=== PATIENT | female | born 1940 | race Caucasian/White ===

== ENCOUNTER → 2016-06-19 | Outpatient (CLI) | payer OTHER, BC ==
[~2016-06-19] MED LIST: ALLEGRA ALLERGY60 MG PO; ALLEGRA180 MG PO; ASPIRIN EC325 M1 PO; CALCIUM LACTATE PO; CENTRUM SILVER1 EAC3 PO; CLONAZEPAM 1 MG1 M1 PO; COUMADIN 5 MG TA5 M1 PO; FLAGYL500 MG PO; FLONASE 0.05%50 MCG NASAL; GINGER500 MG PO; LEVAQUIN 500 M500 M2 PO; NORCO 5-325 TA1 EACH PO; OXYCODON-ACETA1 EAC1 PO; PERCOCET PO; QVAR HFA 440 MCG/UN1 INH; SINGULAIR 10 MG10 MG PO; VITAMIN D1000 UNI1 PO; VITAMIN E400 UNIT PO; ZYRTEC10 M2 PO
== END ==
LOC: MRI 02:02
DX: M48.06 Spinal stenosis, lumbar region (principal); M47.26 Other spondylosis with radiculopathy, lumbar region; M54.5 Low back pain

== ENCOUNTER 2017-10-02 15:55 | Emergency (ER) | payer OTHER, BC ==
[~2017-10-02] VITALS: Ht 154.9 cm; Wt 52.6 kg
[2017-10-02 16:15] LABS: URINE BILIRUBIN NEGATIVE (Negative); URINE BLOOD TRACE (Negative); URINE CLARITY CLEAR; URINE COLOR YELLOW; URINE GLUCOSE-RANDOM* NEGATIVE (Negative); URINE KETONES NEGATIVE (Negative); URINE LEUKOCYTES-REFLEX 1+ (Negative); URINE NITRITE-REFLEX NEGATIVE (Negative); URINE PROTEIN (DIPSTICK) NEGATIVE (Negative); URINE SPECIFIC GRAVITY <= 1.005 (1.005-1.035); URINE UROBILINOGEN 0.2 E.U./dl (0.2-1.0)
[2017-10-02 16:26] LABS: BACTERIA-REFLEX None Seen /HPF (None Seen); CASTS None Seen /LPF (None Seen); CRYSTALS None Seen /LPF (None Seen); SQUAMOUS 4-10 Moderate /LPF (0-3); URINE RBC 0-2 Rare /HPF (0-2); URINE WBC-REFLEX 0-5 Rare /HPF (0-5)
[2017-10-02] MEDS ORDERED: ZINC30 M1 PO (16:33)
[2017-10-02] MEDS ORDERED: VITAMINC500 PO (16:33)
[2017-10-02 16:38] LABS: BASOPHILS 1.5 % (0.0-2.0); EOSINOPHILS 8.6 % (0.0-3.0); HEMATOCRIT 38.7 % (37.0-47.0); HEMOGLOBIN 13.2 gm/dL (12.0-15.0); LYMPHOCYTES 22.3 % (24.0-44.0); MCH 31.1 pg (26.0-34.0); MCV 91.6 fL (80.0-100.0); PLATELET COUNT 177 thou/uL (150-400); POLYS 56.6 % (36.0-66.0); RBC 4.23 mil/uL (4.20-5.00); WBC 5.3 thou/uL (4.0-11.0)
[2017-10-02 16:50] LABS: CALCIUM 8.7 mg/dL (8.5-10.1); CREATININE 0.8 mg/dL (0.6-1.0); POTASSIUM 4.1 mmol/L (3.5-5.1)
[2017-10-02 16:57] LABS: ALBUMIN 3.6 g/dL (3.4-5.0); TOTAL BILIRUBIN 0.5 mg/dL (<0.1-1.0); TOTAL PROTEIN 6.7 g/dL (6.4-8.2)
== END 2017-10-02 18:00 | disposition home or self-care (01) ==
LOC: ER 15:55
PROVIDERS: Physician Assistant
DX: R10.9 Unspecified abdominal pain (principal); S81.811A Laceration without foreign body, right lower leg, initial encounter; Z71.1 Person with feared health complaint in whom no diagnosis is made; Z96.659 Presence of unspecified artificial knee joint; F17.210 Nicotine dependence, cigarettes, uncomplicated; Z88.1 Allergy status to other antibiotic agents; Z88.0 Allergy status to penicillin; Z88.8 Allergy status to other drugs, medicaments and biological substances; W01.0XXA Fall on same level from slipping, tripping and stumbling without subsequent striking against object, initial encounter; Y93.89 Activity, other specified; Y92.89 Other specified places as the place of occurrence of the external cause; Y99.8 Other external cause status

== ENCOUNTER 2018-07-09 17:42 | Inpatient (IN) | payer OTHER ==
[~2018-07-09] VITALS: Ht 160 cm; Wt 49.9 kg
[2018-07-09 17:42] VITALS: BP 156/82
[~2018-07-09 17:42] MED LIST changes: +VITAMINC500 PO; +ZINC30 M1 PO
[2018-07-09 18:16] LABS: BASOPHILS 0.3 % (0.0-2.0); EOSINOPHILS 0.1 % (0.0-3.0); HEMATOCRIT 35.4 % (37.0-47.0); HEMOGLOBIN 12.2 gm/dL (12.0-15.0); LYMPHOCYTES 4.3 % (24.0-44.0); MCH 30.8 pg (26.0-34.0); MCHC 34.3 g/dL (28.0-37.0); MCV 89.7 fL (80.0-100.0); MONOCYTES 7.8 % (1.0-8.0); PLATELET COUNT 135 thou/uL (150-400); POLYS 87.5 % (36.0-66.0); RBC 3.95 mil/uL (4.20-5.00); RDW 12.5 % (10.5-14.5); WBC 13.7 thou/uL (4.0-11.0)
[2018-07-09 18:26] LABS: CALCIUM 8.3 mg/dL (8.5-10.1); CREATININE 0.9 mg/dL (0.6-1.0); TOTAL BILIRUBIN 1.1 mg/dL (<0.1-1.0); TOTAL PROTEIN 6.5 g/dL (6.4-8.2)
[2018-07-09 18:31] LABS: POTASSIUM 2.4 mmol/L (3.5-5.1)
[2018-07-09 18:49] LABS: URINE BILIRUBIN NEGATIVE (Negative); URINE BLOOD 3+ (Negative); URINE CLARITY CLEAR; URINE COLOR YELLOW; URINE GLUCOSE-RANDOM* NEGATIVE (Negative); URINE KETONES 1+ (Negative); URINE LEUKOCYTES 3+ (Negative); URINE NITRITE POSITIVE (Negative); URINE PROTEIN (DIPSTICK) 2+ (Negative); URINE SPECIFIC GRAVITY 1.015 (1.005-1.035); URINE UROBILINOGEN 0.2 E.U./dl (0.2-1.0)
[2018-07-09 18:59] LABS: BACTERIA >30 Many /HPF (None Seen); CASTS None Seen /LPF (None Seen); CRYSTALS None Seen /LPF (None Seen); SQUAMOUS None Seen /LPF (0-3); URINE WBC >25 Many /HPF (0-5); WBC CLUMPS Many (None Seen)
[2018-07-09 20:26] VITALS: BP 122/60
[2018-07-09 20:35] VITALS: BP 119/64
[2018-07-09 20:56] VITALS: BP 134/63
--- NOTE | 2018-07-10 02:47 | NUR ---
ADMITTED FROM ER UNDER 'S CARE. ADMITTED WITH SEPSIS/UTI/HYPOKALEMIA. AXOX4. JOSE LR DARNELL AT BEDSIDE. PUT ON SPECIAL CONTACT ISOLATION FOR POSSIBLE C.DIFF. STOOL SAMPLE SENT DOWN TO LAB FOR TESTING. ON IV HYDRATION. VSS UPON ADMISSION. K+ REPLACED VIA IV AND PO. 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 PER PT, PT IS ALLERGIC TO LATAX, PRECAUTION INITIATED. INITIATED TELE MONITORING. SR/ST ON MONITOR. NO S/S ACUTE DISTRESS NOTED REPORTED AT THIS TIME. WILL CONT TO MONITOR FOR ANY CHANGES IN CONDITION.
[2018-07-10 03:10] VITALS: BP 165/84
[2018-07-10 05:16] LABS: HEMATOCRIT 33.4 % (37.0-47.0); HEMOGLOBIN 11.3 gm/dL (12.0-15.0); MCH 30.6 pg (26.0-34.0); MCHC 33.9 g/dL (28.0-37.0); MCV 90.1 fL (80.0-100.0); RBC 3.71 mil/uL (4.20-5.00); RDW 12.6 % (10.5-14.5)
[2018-07-10 05:33] LABS: CALCIUM 7.6 mg/dL (8.5-10.1); CREATININE 0.9 mg/dL (0.6-1.0); POTASSIUM 3.1 mmol/L (3.5-5.1)
[2018-07-10 08:00] VITALS: BP 118/62
--- NOTE | 2018-07-10 11:26 | NUR ---
PATIENT SITTING UP IN CHAIR THIS MORNING. IN GOOD SPIRITS. HAD ONE LARGE INCONTINENT LOOSE STOOL EARLY AM. STOOL SAMPLE SENT TO LAB. DENIES PAIN AT PRESENT. NEW IV PLACED. LAC IV INFILTRATED SO REMOVED. RESTARTED IN LEFT FOREARM. HARD OF HEARING. FALL AND LATEX PRECAUTIONS IN PLACE. WILL CONTINUE TO MONITOR CLOSELY.
--- NOTE | 2018-07-10 14:09 | NUR ---
PT ADMITTED REALATED TO D/N/V/UTI. CM REVIEWED CHART AND SPOKE WITH CARE TEAM. CM MET WITH PT AT BEDSIDE THIS DAY. PT IS A&0 X4. CM ROLE INTRODUCED. PT INDICATED SHE LIVES ALONE IN A HOUSE WITH 3 STEPS TO ENTER AND 12 STEPS TO BASEMENT LAUNDRY. 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 PT INDICATED SHE HAD USED [facility] IN THE PAST AND THAT SHE HAD BEEN ISSUED A FWW FOR USE IN THE PAST. PT INDICATED SHE PLANS TO RETURN HOME ONCE MEDICALLY STABLE. CM TO FOLLOW INDICATED WITH DC PLANNING.
[2018-07-10 15:00] VITALS: BP 134/72
--- NOTE | 2018-07-10 16:13 | NUR ---
QUIET UNEVENTFUL DAY. NO SYNCOPAL EPISODES. TOLERATING DIET. MAIN COMPLAINT CONSTIPATION AND FOLLOWING HER HOME MEDICATION TIMES. MIRALAX ORDERED. ANXIETY NOTED. ON XANAX Q4H. UP WITH STANDBY ASSISTANCE WITH STEADY GAIT NOTED. TYLENOL GIVEN PER HOME MEDICATION SCHEDULE. STATES HAS DRY EYE PAIN ALL THE TIME. USING OWN EYE OINTMENT AND DROPS. US OF CAROTIDS DONE. HAS SAT UP IN CHAIR ALL DAY. FALL PRECAUTIONS IN PLACE. PLAN IS TO DISMISS HOME TOMORROW IF STABLE.
--- NOTE | 2018-07-10 17:28 | NUR ---
QUIET UNEVENTFUL DAY. SAT UP IN CHAIR MOST OF THE DAY. BACK TO BED AT PRESENT. VERY PLEASANT AND COOPERATIVE. 2 LARGE, AND 1 SMALL LOOSE BM TODAY. TOLERATING DIET. MAIN COMPLAINT IS LEFT EAR PAIN. NOTIFIED DR. KNIGHT AND RECEIVED ORDER FOR EAR DROPS. SAT UP IN CHAIR FOR MEALS. TYLENOL HELPFUL FOR HEADACHE. UP TO BSC WITH STANDBY ASSISTANCE. FALL PRECAUTIONS IN PLACE.
[2018-07-10 20:06] VITALS: BP 122/86
[2018-07-11 03:20] VITALS: BP 135/78
--- NOTE | 2018-07-11 05:31 | NUR ---
progress pt progressing c diff testing negative stools aren't as watery as previous per pt. having abdominal pain and cramping had 4 small to moderate loose stools voiding qs. up with assist, tolerating liquids but had small emesis with a fast food [employer]aez family had given resolved after. requesting imodium awaiting orders.
[2018-07-11 07:10] VITALS: BP 162/97
[2018-07-11 15:10] VITALS: BP 168/87
--- NOTE | 2018-07-11 18:25 | NUR ---
ALERT X4, ANXIOUS AND TALKATIVE. UP WITH MIN ASSIST TO COMMODE. NIGHT NURSE REPORTED PT HAD 2 EPISODES OF LOOSE STOOL. TX PT WITH MORNING WITH IMMODIUM PER PT REQUEST. NO BM NOTED AT THIS TIME. ONE EPISODE OF VOMIT AFTER MORNING MEAL. NO OTHER EPISODE NOTED. DECLINED NOON AND EVENING MEAL HOWEVER, PT DID EAT HALF AN APPLE, A YOGURT, AND A PUDDING AT DINNER. PT COMPLIANT TO CALL FOR ASSISTANCE WHEN AMBULATING. FALL PRECAUTIONS IN PLACE. CALLS APPROAPTIATLEY.
[2018-07-11 19:35] VITALS: BP 172/93
[2018-07-12 03:20] VITALS: BP 156/88
--- NOTE | 2018-07-12 05:17 | NUR ---
PT SLEPT ON AND OFF DURING THE NIGHT PT USED TEODORA LIGHT EFFECTIVELY NO ISSUES OVERNIGHT.
[2018-07-12 08:00] VITALS: BP 171/65
[2018-07-12 12:15] VITALS: BP 161/98
--- NOTE | 2018-07-12 12:33 | NUR ---
Received awake on bed. Due medications given as prescribed. With IV fluids infusing at 100cc/hr. Breathing on room air. Alert and oriented x 4. Assisted by 1, uses bedside commode. With heart monitor on. Seen and examined by Dr. Magdaleno- awaiting C/S, for PT/OT evaluation. Visited by relative today. Patient falls risk- bed alarm on, falls protocol observed. Transfered to senior suites via wheelchair, handed over to staff.
--- NOTE | 2018-07-12 14:57 | NUR ---
PT CAME DOWN TO SICU AROUND 12:15 ACCOMPANIED BY DAUGHTER AND HOSPITAL STAFF. SHOWED HER HOW TO USE CALL LIGHT, GAVE HER DAUGHTER A SNACK, PT IS A&0X4, SBA FOR AMBULATION, ROOM AIR, DECLINES ANY NEEDS/PAIN AT THIS TIME, K+ LOW AT 3.1 GAVE PHYSICIAN AN ALERT, POSSIBLE D/C TOMORROW, SHOWER DONE W/HELP OF DAUGHTER AND STAFF, ALARMS ON FOR SAFETY PT CAN BE SLIGHTLY FORGETFUL, ENCOURAGED BOTH TO USE CALL LIGHT FOR ANY NEEDS
[2018-07-12 17:52] VITALS: BP 159/76
[2018-07-12 20:11] VITALS: BP 170/94
--- NOTE | 2018-07-13 04:30 | NUR ---
PATIENT ALERT AND ORIENTED X4. VERY [place]. UP WITH SBA TO BATHROOM. THIS NURSE RE-DRESSED IV AND IT REMAINS PATENT. BS MONITORED. POSSIBLE DISCHARGE HOME TODAY, LIVING WITH RENTERS. COOPERATIVE WITH CARE. C/O PAIN TO ABDOMINAL AREA AND GIVEN TWO HYDROCODONE WITH GOOD RESULTS. RESTING QUIETLY. WILL MONITOR.
[2018-07-13 06:30] VITALS: BP 179/111
[2018-07-13 10:43] LABS: ABSOLUTE NEUTROPHILS 7.2 thou/uL (1.4-8.2); BASOPHILS 0.3 % (0.0-2.0); EOSINOPHILS 0.4 % (0.0-3.0); HEMATOCRIT 38.8 % (37.0-47.0); HEMOGLOBIN 13.3 gm/dL (12.0-15.0); LYMPHOCYTES 8.2 % (24.0-44.0); MCH 30.1 pg (26.0-34.0); MCHC 34.3 g/dL (28.0-37.0); MONOCYTES 10.2 % (1.0-8.0); PLATELET COUNT 225 thou/uL (150-400); POLYS 80.9 % (36.0-66.0); RBC 4.41 mil/uL (4.20-5.00); RDW 12.7 % (10.5-14.5); WBC 8.9 thou/uL (4.0-11.0)
[2018-07-13 10:49] LABS: CALCIUM 8.3 mg/dL (8.5-10.1); CREATININE 0.7 mg/dL (0.6-1.0); MAGNESIUM 1.4 mg/dL (1.8-2.4)
[2018-07-13 11:01] LABS: POTASSIUM 2.3 mmol/L (3.5-5.1)
--- NOTE | 2018-07-13 11:52 | NUR ---
ASSUMED CARE OF PATIENT THIS MORNING. PATIENT IS A&OX4. SHE GETS UP WITH SBA WHEN AMBULATING. SHE WORKED WITH THERAPY THIS MORNING AND USED A CANE WHILE AMBULATING. IT WAS EASIER FOR HER TO AMBULATE, SHE SWAYED TO THE SIDE WHEN AMBULATING WITHOUT ANY ASSISTIVE DEVICES. PATIENT HAD A CRITICAL POTASSIUM LAB VALUE THIS MORNING AND WILL BE STARTED ON THE ELECTROLYTE PROTOCOL. HER BLOOD PRESSURE WAS HIGH THIS MORNING AND THE NIGHT NURSE GAVE HER HYDRALAZINE AND HER BLOOD PRESSURE WAS BETTER. SHE ALSO RECEIVED TYLENOL FOR A HEADACHE WHICH SHE RATED PAIN 6/10. PATIENT IS CURRENTLY SITTING IN RECLINER WITH CALL LIGHT WITHIN REACH.
--- NOTE | 2018-07-13 12:20 | NUR ---
CALLED [facility]U CAN GAVE REPORT TO THE ONCOMING NURSE WHO WILL BE TAKING CARE OF THE PATIENT. PATIENT'S BELONGINGS WILL BE GATHERED AND PACKED UP. EAR DROPS WILL ALSO BE SENT WITH THE PATIENT.
[2018-07-13 13:25] VITALS: BP 136/99
--- NOTE | 2018-07-13 13:59 | NUR ---
Nutrition: Pt seen for f/u. States appetite is good, but fluctuates due to being moved around hospital, changes in care, etc. Diet was heart healthy but now has been advanced to regular. Reports intake >50% with diet advancement. Drinking 100% Ensure Clear once daily. Bed scale wt showed 115 lbs, likely inaccurate. However shows wt trending back to usual of 115 lbs. Explained menu ordering. With intervention in place and po intake around 50%, moving to low nutrition risk.
[2018-07-13 16:00] VITALS: BP 141/83
--- NOTE | 2018-07-13 18:34 | NUR ---
PATIENT TRANFERED FROM SENIOT SUITES, ALERT AND ORIENTED X4. DENIES ANY DISCOMFORT, SR ON THE MONITOR AND VSS. K+ REPLACED PER PROTOCOL AND WILL CONTINUE WITH POC.
[2018-07-13 19:56] VITALS: BP 156/90
[2018-07-14 05:06] LABS: ABSOLUTE NEUTROPHILS 6.4 thou/uL (1.4-8.2); BASOPHILS 0.6 % (0.0-2.0); EOSINOPHILS 1.4 % (0.0-3.0); HEMATOCRIT 38.7 % (37.0-47.0); HEMOGLOBIN 12.9 gm/dL (12.0-15.0); LYMPHOCYTES 16.6 % (24.0-44.0); MCH 29.9 pg (26.0-34.0); MCHC 33.3 g/dL (28.0-37.0); MCV 89.9 fL (80.0-100.0); MONOCYTES 10.4 % (1.0-8.0); PLATELET COUNT 278 thou/uL (150-400); RBC 4.31 mil/uL (4.20-5.00); RDW 12.7 % (10.5-14.5)
[2018-07-14 05:11] LABS: CALCIUM 8.5 mg/dL (8.5-10.1); CREATININE 0.7 mg/dL (0.6-1.0); MAGNESIUM 1.4 mg/dL (1.8-2.4); POTASSIUM 3.2 mmol/L (3.5-5.1)
[2018-07-14 07:30] VITALS: BP 146/93
[2018-07-14 11:30] VITALS: BP 136/83
[2018-07-14 15:06] LABS: MAGNESIUM 1.7 mg/dL (1.8-2.4)
[2018-07-14 15:07] LABS: POTASSIUM 4.2 mmol/L (3.5-5.1)
[2018-07-14 16:50] VITALS: BP 147/79
--- NOTE | 2018-07-14 17:50 | NUR ---
ASSUMED CARE AT [facility],ASSESMENT CHARTED, SR AND VSS. ELECTORLYTES REPLACED PER PROTOCOL. AND WILL CONTINUE WITH POC.
[2018-07-14 19:40] VITALS: BP 131/78
[2018-07-15 04:15] VITALS: BP 139/83
[2018-07-15 04:27] LABS: CALCIUM 8.2 mg/dL (8.5-10.1); MAGNESIUM 1.7 mg/dL (1.8-2.4); POTASSIUM 4.7 mmol/L (3.5-5.1)
[2018-07-15 04:52] LABS: MCH 30.6 pg (26.0-34.0); MCHC 33.7 g/dL (28.0-37.0); MCV 90.8 fL (80.0-100.0); RBC 3.52 mil/uL (4.20-5.00); RDW 12.9 % (10.5-14.5); WBC 6.2 thou/uL (4.0-11.0)
[2018-07-15 05:01] LABS: HEMOGLOBIN 10.8 gm/dL (12.0-15.0)
--- NOTE | 2018-07-15 06:24 | NUR ---
ASSUME CARE 1900. PT/VITALS STABLE. COMPLAIN OF BACK PAIN/TYLENOL FOR RELIEF. ASSESSENT CHARTED. PROGRESSING WELL WITH POC. UP STEADY ON FEET. PLAN IS POSSIBLE DISCHARGE TODAY. ADEQUATE REST NOTED. WILL CONTINUE TO MONITOR AND FOLLOW WITH POC
[2018-07-15 07:43] VITALS: BP 160/95
[2018-07-15 10:51] VITALS: BP 111/81
--- NOTE | 2018-07-15 11:42 | NUR ---
Pt requested information on foods to cease diarrhea. Explained sx based on individualized food tolerance, other medical issues, etc. Stated bland foods may help, answered specific food questions. Assisted in ordering lunch and dinner, obtained food preferences. Explained the need for adequate fluids/good intake of tolerated foods. Stated was lactose intolerant but tolerates in low amounts. Requested desserts, explained to use caution due to possible lactose. Will remain available for future questions/concerns.
[2018-07-15] MEDS ORDERED: ACETAMINOPHEN325 M1 PO (14:59)
[2018-07-15] MEDS ORDERED: CEFUROXIME500 MG PO (14:59)
[2018-07-15] MEDS ORDERED: LISINOPRIL10 MG PO (14:59)
[2018-07-15 15:19] VITALS: BP 111/81; BP 149/79
== END 2018-07-15 17:30 | disposition home or self-care (01) | DRG 871 ==
LOC: ER 17:42 → 4W 19:58 → EROBS 19:58 → 2N 19:58 → 4W 20:39 → SICU 07-12 12:50 → EDTRNSPT 07-13 12:41 → ENTRNSPT 07-13 12:41 → EDTRNSPTSTS 07-13 12:48 → 2N 07-13 12:52 → CMPTRNSPT 07-14 10:39 → ENTRNSPT 07-15 17:22 → 2N 07-15 17:30
PROVIDERS: Internal Medicine; Internal Medicine Geriatric Medicine; Nurse Practitioner Family; Physician Assistant; ADMIT Hospitalist
DX: A41.50 Gram-negative sepsis, unspecified (principal); E43 Unspecified severe protein-calorie malnutrition; N39.0 Urinary tract infection, site not specified; Z68.1 Body mass index [BMI] 19.9 or less, adult; E87.6 Hypokalemia; B96.20 Unspecified Escherichia coli [E. coli] as the cause of diseases classified elsewhere; E83.42 Hypomagnesemia; R41.81 Age-related cognitive decline; F17.210 Nicotine dependence, cigarettes, uncomplicated; F41.9 Anxiety disorder, unspecified; I10 Essential (primary) hypertension; Z90.5 Acquired absence of kidney; Z88.1 Allergy status to other antibiotic agents; Z88.0 Allergy status to penicillin; Z88.2 Allergy status to sulfonamides; Z88.8 Allergy status to other drugs, medicaments and biological substances; Z79.899 Other long term (current) drug therapy
CPT/HCPCS: 10045; 10081; 15001

== ENCOUNTER → 2019-12-27 | Outpatient (CLI) | payer OTHER ==
[~2019-12-27] MED LIST changes: +ACETAMINOPHEN325 M1 PO; +CEFUROXIME500 MG PO; +LISINOPRIL10 MG PO
== END ==
LOC: CAT 10:12
PROVIDERS: ATTEND Nurse Practitioner
DX: K57.30 Diverticulosis of large intestine without perforation or abscess without bleeding (principal); D73.89 Other diseases of spleen; N28.81 Hypertrophy of kidney; I70.0 Atherosclerosis of aorta; I70.8 Atherosclerosis of other arteries; M47.816 Spondylosis without myelopathy or radiculopathy, lumbar region; Z90.49 Acquired absence of other specified parts of digestive tract